=== PATIENT | male | born 1990 | race Caucasian/White ===

== ENCOUNTER 2018-04-09 08:43 | Emergency (ER) | payer BC, OTHER ==
--- NOTE | 2018-04-09 09:35 | EDM.PDOC ---
ED HPI GENERAL MEDICAL PROBLEM - General Chief Complaint: General Stated Complaint: LYMES? Time Seen by Provider: 04/09/18 09:25 Source of Information: Reports: Patient, Family, RN Notes Reviewed History Limitations: Reports: No Limitations - History of Present Illness INITIAL COMMENTS - FREE TEXT/NARRATIVE: 27-year-old gentleman presents to the emergency department today with complaint of a rash, he was bitten by a tick maybe 2 weeks ago he is now developed a rash over the last couple days it is on his trunk and legs he also has body aches no fevers Generalized Pain Score (Numeric/FACES): 4 - Related Data Allergies Allergy/AdvReac Type Severity Reaction Status Date / Time No Known Allergies Allergy Verified 04/09/18 09:03 Home Meds: Home Meds NK [No Known Home Meds] 04/09/18 [History] Past Medical History HEENT History: Reports: Impaired Vision Cardiovascular History: Reports: Other (See Below) Other Cardiovascular History: PULMONARY VALVE DISORDER DEFECT Gastrointestinal History: Reports: Cholelithiasis Neurological History: Reports: Other (See Below) Other Neuro History: ESSENTIAL TREMORS HANDS - Infectious Disease History Infectious Disease History: Reports: Chicken Pox, Measles - Past Surgical History GI Surgical History: Reports: Appendectomy, Cholecystectomy Social & Family History - Tobacco Use Smoking Status *Q: Current Every Day Smoker Years of Tobacco use: 9 Packs/Tins Daily: 0.5 Second Hand Smoke Exposure: Yes - Caffeine Use Caffeine Use: Reports: Energy Drinks - Recreational Drug Use Recreational Drug Use: Yes Drug Use in Last 12 Months: Yes Recreational Drug Type: Reports: Marijuana/Hashish Recreational Drug Use Frequency: Daily ED ROS GENERAL - Review of Systems Review Of Systems: See Below Constitutional: Reports: Fatigue, Other (Generalized body aches) HEENT: Reports: No Symptoms Respiratory: Reports: No Symptoms Cardiovascular: Reports: No Symptoms GI/Abdominal: Reports: No Symptoms ED EXAM, GENERAL - Physical Exam Exam: See Below Free Text/Narrative:: Multiple bull's-eye type rash on the back and lower extremities consistent with erythema migrans Exam Limited By: No Limitations General Appearance: Alert, WD/WN, No Apparent Distress Respiratory/Chest: No Respiratory Distress, Lungs Clear, Normal Breath Sounds, No Accessory Muscle Use Cardiovascular: Regular Rate, Rhythm, No Murmur Course - Vital Signs Last Recorded V/S: Last Vital Signs Temp 98.4 F 04/09/18 09:11 Pulse 67 04/09/18 09:11 Resp 16 04/09/18 09:11 BP 128/55 L 04/09/18 09:11 Pulse Ox 98 04/09/18 09:11 Departure - Departure Time of Disposition: 09:36 Disposition: Home, Self-Care 01 Condition: Good Clinical Impression: Erythema migrans (Lyme disease) - Discharge Information Referrals: Yovana Perez PA [Primary Care Provider] - Additional Instructions: Take full course of antibiotics, Please followup with your primary care provider in 7-10 days if not better, please call return to the emergency department with worsening of symptoms. - Assessment/Plan Plan: Assessment Acuity = acute Site and laterality = erythema migrans consistent with Lyme disease Etiology = tickborne illness Manifestations = body aches Location of injury = Home Lab values = none Plan Elected to treat empirically with doxycycline 100 mg by mouth twice a day 21 days follow-up with primary care in 7-10 days if no improvement This note was dictated using [employer] voice recognition software please call with any questions on syntax or grammar.
== END 2018-04-09 09:51 | disposition home or self-care (01) ==
LOC: JP.ED 08:43
DX: A69.20 Lyme disease, unspecified (principal); F17.210 Nicotine dependence, cigarettes, uncomplicated
CPT/HCPCS: 99283